=== PATIENT | female | born 2000 | race Caucasian/White ===

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

== ENCOUNTER 2018-04-10 12:07 | Emergency (ER) | payer OTHER ==
[2016-04-13 10:08] VITALS: Wt 61.2 kg
[~2018-04-10 12:07] MED LIST changes: +CIPR-344 PO; +MIRA50TA PO
[2018-04-10 12:11] VITALS: BP 135/81
--- NOTE | 2018-04-10 12:14 | ER Report ---
History and Physical Time Seen By MD: 12:14 HPI/ROS CHIEF COMPLAINT: Cold symptoms HISTORY OF PRESENT ILLNESS: This is a 17-year-old female presents to the emergency department with cold symptoms. Patient states that about 2-3 days ago she had some sinus congestion and pressure, today she developed a rather abrupt onset of aches and chills and a dry nonproductive cough. 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 She denies nausea vomiting. No diarrhea. No chest pain or shortness of breath. REVIEW OF SYSTEMS: Constitutional: As above. Respiratory: No cough, no dyspnea. Cardiovascular: No chest pain, no palpitations. Gastrointestinal: No vomiting, no abdominal pain. Musculoskeletal: As above. Allergies: Coded Allergies: Penicillins (Verified Allergy, Intermediate, FACIAL SWELLING, 10/31/17) Home Meds Active Scripts Nitrofurantoin Monohyd/M-Cryst (MACROBID 100 MG CAPSULE) 100 Mg Capsule, 100 MG PO BID PRN for UTI symptoms for 3 Days, #24 CAPSULE 2 Refills Prov:MARTIN MANCERA MD 01/20/18 Mirabegron (MYRBETRIQ) 50 Mg Tab.er.24h, 50 MG PO DAILY for 30 Days, #30 CAP 3 Refills Prov:MARTIN MANCERA MD 01/20/18 Reported Medications [Lashonda ] No Conflict Check, 14 MCG DAILY 09/07/17 Past Medical/Surgical History The patient has a past medical and surgical history of frequent bronchitis, asthma, urinary tract infections, ear infections, depression, anxiety, history of suicide attempt. Reviewed Nurses Notes: Yes Hx Smoking: No Smoking Status: Never Smoker Exposure to Second Hand Smoke?: No Hx Substance Use Disorder: Yes Hx Alcohol Use: Yes Constitutional Vital Sign - Last 24 Hours 04/10/18 04/10/18 12:11 13:22 Temp 98.1 98.2 Pulse 77 Resp 16 B/P (MAP) 135/81 Pulse Ox 91 O2 Delivery Room Air Physical Exam General Appearance: The patient is alert, has no immediate need for airway protection and no current signs of toxicity. Eyes: Pupils equal and round no injection. Respiratory: Chest is non tender, lungs are clear to auscultation. Cardiac: regular rate and rhythm, no murmurs, clicks or rubs. Gastrointestinal: Abdomen is soft and non tender, no masses, bowel sounds normal. Musculoskeletal: Neck: Neck is supple and non tender. Extremities have full range of motion and are non tender. Skin: No rashes or lesions. DIFFERENTIAL DIAGNOSIS: After history and physical exam differential diagnosis was considered for viral syndrome, influenza, bronchitis, pneumonia, strep throat. Medical Decision Making Data Points Laboratory Hematology Test 04/10/18 12:17 Influenza Virus Type A (PCR) Negative (NEGATIVE) Influenza Virus Type B (PCR) Negative (NEGATIVE) Respiratory Syncytial Virus (PCR) Positive (NEGATIVE) Chemistry Test 04/10/18 12:17 Influenza Virus Type A (PCR) Negative (NEGATIVE) Influenza Virus Type B (PCR) Negative (NEGATIVE) Respiratory Syncytial Virus (PCR) Positive (NEGATIVE) ED Course/Re-evaluation ED Course The patient was admitted to room. A history and physical were obtained. Differential diagnoses were considered. Patient was negative for influenza however she was positive for RSV. The results were reviewed with the patient. I did tell her to drink plenty of fluids, take ibuprofen and Tylenol as needed for aches and pains. 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 The patient had no other questions or concerns at this time and was discharged home. Encouraged to follow-up with her primary care provider if no improvement within the next week. Decision to Disposition Date: Apr 10, 2018 Decision to Disposition Time: 13:08 Depart Departure Latest Vital Signs Vital Signs Date Time Temp Pulse Resp B/P (MAP) Pulse Ox O2 Delivery O2 Flow Rate FiO2 04/10/18 13:22 98.2 04/10/18 12:11 77 16 135/81 91 Room Air Impression: Primary Impression: RSV (respiratory syncytial virus infection) Condition: Improved Disposition: HOME OR SELF-CARE Referrals: ESTELLA MAO DO (PCP) Patient Instructions: Viral Syndrome (ED) Additional Instructions: You have RSV, for adults usually not a concern, symptomatic treatment. Drink plenty of fluids. Ibuprofen or Tylenol as needed for pain, aches and chills. Get plenty of rest. Return to the ED for any other concerns or worsening symptoms. CHRIST WHYTE RN PROCEDURE-BC Apr 10, 2018 12:14
== END 2018-04-10 13:22 | disposition home or self-care (01) ==
LOC: ER 12:26
DX: B97.4 Respiratory syncytial virus as the cause of diseases classified elsewhere (principal)
CPT/HCPCS: 87502; 87798; 99282

== ENCOUNTER 2018-06-23 17:59 | Emergency (ER) | payer OTHER ==
[2016-04-13 10:08] VITALS: BMI 26.1
[2018-06-23 18:05] VITALS: BP 139/80
--- NOTE | 2018-06-23 18:22 | ER Report ---
History and Physical Time Seen By MD: 18:15 Hx. of Stated Complaint: hurts to pee and frequecy HPI/ROS CHIEF COMPLAINT: believes she has a UTI HISTORY OF PRESENT ILLNESS: 17 year old female presents to ED with s/s of UTI. Reports she noticed foul smelling urine that started 2-3 days ago. Today, she started to have frequency and urgency of urination with discomfort while urinating. Denies fevers, flank pain, nausea, vomiting. Reports that she has a history of frequent UTIs and follows up wit Dr. Aguilar; she has an appointment with him tomorrow. Reports that she had a UTI for 5 months last year. REVIEW OF SYSTEMS: Constitutional: Denies fever, chills, change in appetite. Respiratory: No cough, no dyspnea. Cardiovascular: No chest pain, no palpitations. Gastrointestinal: No vomiting, no abdominal pain. Genitourinary: Reports foul smelling urine, frequency and urgency of urination, and discomfort with urination. Musculoskeletal: No back pain. Allergies: Coded Allergies: Penicillins (Verified Allergy, Intermediate, FACIAL SWELLING, 10/31/17) Home Meds Active Scripts Cephalexin 500 Mg Tab (KEFLEX 500 MG TAB) 500 Mg Tablet, 500 MG PO TID for 7 Days, #21 TAB Prov:NAVYA MARRUFO [employer] 06/23/18 Nitrofurantoin Monohyd/M-Cryst (MACROBID 100 MG CAPSULE) 100 Mg Capsule, 100 MG PO BID PRN for UTI symptoms for 3 Days, #24 CAPSULE 2 Refills Prov:MARTIN AGUILAR MD 01/20/18 Mirabegron (MYRBETRIQ) 50 Mg Tab.er.24h, 50 MG PO DAILY for 30 Days, #30 CAP 3 Refills Prov:MARTIN AGUILAR MD 01/20/18 Reported Medications [Lashonda ] No Conflict Check, 14 MCG DAILY 09/07/17 Past Medical/Surgical History Patient with past medical history significant for frequent bronchitis, frequent UTIs, ear infections, previous hx of suicide attempt 2013, depression, and anxiety, and childbirth 2016. Pat has no significant past surgical history. Reviewed Nurses Notes: Yes Hx Smoking: No Smoking Status: Never Smoker Exposure to Second Hand Smoke?: No Hx Substance Use Disorder: No Hx Alcohol Use: Yes Constitutional Vital Sign - Last 24 Hours 06/23/18 18:05 Temp 97.6 Pulse 82 Resp 17 B/P (MAP) 139/80 Pulse Ox 94 O2 Delivery Room Air Physical Exam General Appearance: The patient is alert, has no immediate need for airway protection and no current signs of toxicity. Eyes: Pupils equal and round no injection. Respiratory: Chest is non tender, lungs are clear to auscultation. Cardiac: regular rate and rhythm Gastrointestinal: Abdomen is soft and non tender, no masses, bowel sounds normal. No CVA tenderness. Musculoskeletal: Neck: Neck is supple and non tender. Extremities have full range of motion and are non tender. Skin: No rashes or lesions. DIFFERENTIAL DIAGNOSIS: After history and physical exam differential diagnosis was considered for UTI, pyelonephritis. Medical Decision Making Data Points Laboratory Hematology Test 06/23/18 18:03 Urine Color [place] Urine Clarity Slightly-cloudy Urine pH 6.0 pH (4.8-9.5) Urine Specific [place] 1.001 Urine Protein Negative mg/dL (NEGATIVE) Urine Glucose (UA) Negative mg/dL (NEGATIVE) Urine Ketones Negative mg/dL (NEGATIVE) Urine Blood Large (NEGATIVE) Urine Nitrite Positive (NEGATIVE) Urine Bilirubin Negative (NEGATIVE) Urine Urobilinogen 2.0 mg/dL (0.2-1.9) Urine Leukocyte Esterase Large (NEGATIVE) Urine RBC 1 /HPF (0-2/HPF) Urine WBC 74 /HPF (0-5/HPF) Urine WBC Clumps Few /HPF Urine Squamous Epithelial Cells Many /LPF (</=FEW) Urine Bacteria Few /HPF (NONE-FEW) Urine Mucus None /HPF (NONE-FEW) Chemistry Test 06/23/18 18:03 Urine Color [place] Urine Clarity Slightly-cloudy Urine pH 6.0 pH (4.8-9.5) Urine Specific [place] 1.001 Urine Protein Negative mg/dL (NEGATIVE) Urine Glucose (UA) Negative mg/dL (NEGATIVE) Urine Ketones Negative mg/dL (NEGATIVE) Urine Blood Large (NEGATIVE) Urine Nitrite Positive (NEGATIVE) Urine Bilirubin Negative (NEGATIVE) Urine Urobilinogen 2.0 mg/dL (0.2-1.9) Urine Leukocyte Esterase Large (NEGATIVE) Urine RBC 1 /HPF (0-2/HPF) Urine WBC 74 /HPF (0-5/HPF) Urine WBC Clumps Few /HPF Urine Squamous Epithelial Cells Many /LPF (</=FEW) Urine Bacteria Few /HPF (NONE-FEW) Urine Mucus None /HPF (NONE-FEW) Urinalysis Test 06/23/18 18:03 Urine Color [place] Urine Clarity Slightly-cloudy Urine pH 6.0 pH (4.8-9.5) Urine Specific [place] 1.001 Urine Protein Negative mg/dL (NEGATIVE) Urine Glucose (UA) Negative mg/dL (NEGATIVE) Urine Ketones Negative mg/dL (NEGATIVE) Urine Blood Large (NEGATIVE) Urine Nitrite Positive (NEGATIVE) Urine Bilirubin Negative (NEGATIVE) Urine Urobilinogen 2.0 mg/dL (0.2-1.9) Urine Leukocyte Esterase Large (NEGATIVE) Urine RBC 1 /HPF (0-2/HPF) Urine WBC 74 /HPF (0-5/HPF) Urine WBC Clumps Few /HPF Urine Squamous Epithelial Cells Many /LPF (</=FEW) Urine Bacteria Few /HPF (NONE-FEW) Urine Mucus None /HPF (NONE-FEW) ED Course/Re-evaluation ED Course Upon arrival to the ED patient was admitted to an exam room, history and physical obtained, differentials considered. Patient presents with s/s of UTI. Reports she noticed foul smelling urine that started 2-3 days ago. Today, she started to have frequency and urgency of urination with discomfort while urinating. Denies fevers, chills, flank pain, nausea, vomiting. Reports that she has a history of frequent UTIs and follows up wit Dr. Aguilar; she has an appointment with him tomorrow. Reports that she had a UTI for 5 months last year. Upon exam, patient denies abdominal pain with palpation; heart with regular rate and rhythm, lungs clear to auscultation. UA ordered. UA was positive for nitrites, large leukocytes, large blood, 74 WBC, 1 RBC, and few bacteria. UA sent for culture. Reviewed past medical notes from Dr. Aguilar and it looked as if her last treatment was with cephelexin. 1 dose of oral cephelexin 500mg given in the ER. Will send home with 7 day course and patient plans to follow-up with Dr. Aguilar tomorrow. Patient to be discharged home with self-care. Patient agrees to plan of care. Decision to Disposition Date: June 23, 2018 Decision to Disposition Time: 19:08 Depart Departure Latest Vital Signs Vital Signs Date Time Temp Pulse Resp B/P (MAP) Pulse Ox O2 Delivery O2 Flow Rate FiO2 06/23/18 18:05 97.6 82 17 139/80 94 Room Air Impression: Primary Impression: UTI (urinary tract infection) Condition: Condition Unchanged Disposition: HOME OR SELF-CARE Referrals: ESTELLA MAO DO (PCP) New Scripts Cephalexin 500 Mg Tab (KEFLEX 500 MG TAB) 500 Mg Tablet 500 MG PO TID for 7 Days, #21 TAB Prov: NAVYA MARRUFO 06/23/18 Patient Instructions: Urinary Tract Infection in Women (ED) Additional Instructions: Please take Keflex, your antibiotic, three times a day for 7 days. Please take all of the pills. Please drink plenty of water and get plenty of rest. Remember to drink lots of water, urinate after intercourse and wipe front to back to prevent UTIs. Please follow-up with Dr. Aguilar tomorrow. Please return to the ED if your symtpoms do not improve, you have any difficulty breathing, you develop a fever, flank pain, or vomiting, or for any other concerns. Problem Qualifiers Primary Impression: UTI (urinary tract infection) Urinary tract infection type: acute cystitis Hematuria presence: with hematuria Qualified Codes: N30.01 - Acute cystitis with hematuria NAVYA MARRUFO June 23, 2018 18:22
[2018-06-23] MEDS ORDERED: CEPHALEXIN MONO 500 MG CAP PO ONE (18:40)
[2018-06-23] MEDS ORDERED: CEPH500T7 PO (19:11)
[2018-06-24] MEDS ORDERED: FLUC150T40 PO (10:44)
[2018-06-24] MEDS ORDERED: NITR-105 PO (10:44)
== END 2018-06-23 19:23 | disposition home or self-care (01) ==
LOC: ER 18:14
DX: N30.01 Acute cystitis with hematuria (principal)
CPT/HCPCS: 81001; 87077; 87088; 87186; 99283

== ENCOUNTER → 2018-06-24 | Outpatient (CLI) | payer OTHER ==
[2016-04-13 10:08] VITALS: BMI 26.1
[~2018-06-24] MED LIST changes: +CEPH500T7 PO; +FLUC150T40 PO
== END ==
LOC: LAB 10:31
PROVIDERS: ATTEND Urology
DX: N39.0 Urinary tract infection, site not specified (principal); R30.0 Dysuria
CPT/HCPCS: 81001; 87088